=== PATIENT | male | born 1975 | race Caucasian/White ===

== ENCOUNTER 2020-02-29 21:36 | Emergency (ER) | payer SELFPAY ==
[2020-02-29] MEDS ORDERED: METHYLPREDNISOLONE 125 MG INJ ONE (21:55)
[2020-02-29] MEDS ORDERED: NA CHLORIDE 0.9% 1,000 ML ONE (21:55)
[2020-02-29] MEDS ORDERED: FAMOTIDINE 20 MG/2 ML VIAL IV ONE ×2 (21:55→22:00)
[2020-02-29] MEDS ORDERED: DIPHENHYDRAMINE 50 MG/ML VIAL ONE (21:55)
[2020-02-29] MEDS ORDERED: IPRATROPIUM BROM 0.5MG/2.5ML ONE (22:03)
[2020-02-29] MEDS ORDERED: ALBUTEROL 2.5 MG/3 ML NEB SOL ONE (22:03)
[2020-02-29] MEDS ORDERED: EPINEPHRINE/PF 1 MG/ML AMP ONE (22:11)
[2020-02-29 22:17] LABS: Absolute Lymphocytes (CBC) 3.3 K/uL (0.7-4.9); Basophils % 1.2 % (0-1.3); Lymphocytes % 28.3 % (15.3-44.8); MPV 9.5 fL (7.6-11.3); RBC Red Blood Cell Count 5.06 M/uL (4.33-5.43)
[2020-02-29] MEDS ORDERED: predniSONE 20 MG TAB ONE (22:34)
[2020-02-29 22:35] LABS: Albumin 3.3 g/dL (3.4-5.0); Bilirubin Total 0.2 mg/dL (0.2-1.0); Potassium 3.9 mmol/L (3.5-5.1); Protein, Total 7.3 g/dL (6.4-8.2)
--- NOTE | 2020-02-29 22:46 | ER ---
Nurse's Notes [facility] Name: Hero Burden Age: 44 yrs Sex: Male : 1975 Arrival Date: 02/29/2020 Time: 21:42 Bed 3 Private MD: Diagnosis: Food additives allergy status;Food allergy status Presentation: 02/28 21:48 Chief complaint: Patient states: Allergic to chicken and eggs. 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 Reports SOB and throat swelling. Coronavirus screen: Proceed with normal triage. Patient denies a cough. Patient reports shortness of breath or difficulty breathing. Patient denies measured and/or subjective temperature greater than 100.4F prior to today's visit. Patient denies travel on a cruise ship or to a country the [facility] currently lists as an affected area. Patient denies contact with known and/or suspected case of COVID-19. Ebola Screen: Patient negative for fever greater than or equal to 101.5 degrees Fahrenheit, and additional compatible Ebola Virus Disease symptoms Patient denies exposure to infectious person. Patient denies travel to an Ebola-affected area in the 21 days before illness onset. No symptoms or risks identified at this time. Initial Sepsis Screen: Does the patient meet any 2 criteria? No. Patient's initial sepsis screen is negative. Does the patient have a suspected source of infection? No. Patient's initial sepsis screen is negative. Risk Assessment: Do you want to hurt yourself or someone else? Patient reports no desire to harm self or others. Onset of symptoms was February 29, 2020. 21:48 Method Of Arrival: Ambulatory ca1 21:48 Acuity: MORAIMA 3 ca1 Triage Assessment: 22:02 General: Appears comfortable, Behavior is calm, cooperative. Respiratory: Reports rv shortness of breath at rest Onset: The symptoms/episode began/occurred 2029, the patient has mild shortness of breath. Historical: - Allergies: 21:52 No Known Allergies; ca1 - Home Meds: 21:52 None [Active]; ca1 - PMHx: 21:52 None; ca1 - PSHx: 21:52 Appendectomy; ca1 - Immunization history:: Adult Immunizations up to date. - Social history:: Smoking status: Patient denies any tobacco usage or history of. - Family history:: not pertinent. Screenin:02 Abuse screen: Denies threats or abuse. Denies injuries from another. Nutritional rv screening: No deficits noted. Tuberculosis screening: No symptoms or risk factors identified. Fall Risk None identified. Assessment: 22:01 General: Appears comfortable, Behavior is calm, cooperative. Pain: Denies pain. Neuro: rv Level of Consciousness is awake, alert, obeys commands, Oriented to person, place, time, situation. Cardiovascular: Patient's skin is warm and dry. Rhythm is regular. Respiratory: Airway is patent Respiratory effort is even, unlabored, Breath sounds are clear bilaterally. Derm: Skin is intact. 22:57 Reassessment: Patient appears in no apparent distress at this time. Patient is alert, rr5 oriented x 3, equal unlabored respirations, skin warm/dry/pink. for discharge after IV fluid bolus. 23:17 Reassessment: Patient appears in no apparent distress at this time. Patient is alert, rr5 oriented x 3, equal unlabored respirations, skin warm/dry/pink. discharge instruction given and explained without complaints made. Patient states feeling better. Patient states symptoms have improved. Vital Signs: 21:48 BP 120 / 79; Pulse 91; Resp 20 S; Temp 97.6(TE); Pulse Ox 96% on R/A; Weight 136.08 kg ca1 (R); Height 6 ft. 0 in. (182.88 cm) (R); Pain 0/10; 22:54 BP 115 / 86; Pulse 95; Resp 19; Pulse Ox 98% on R/A; rr5 23:16 BP 121 / 78; Pulse 90; Resp 17; Temp 97.5; Pulse Ox 100% on R/A; rr5 21:48 Body Mass Index 40.69 (136.08 kg, 182.88 cm) ca1 ED Course: 21:42 Patient arrived in ED. cf2 21:44 Edis Botello MD is Attending Physician. tess 21:48 Inserted saline lock: 20 gauge in right antecubital area, using aseptic technique. mt Blood collected. 21:51 Brad Guevara RN is Primary Nurse. rr5 21:51 Triage completed. ca1 21:52 Arm band placed on right wrist. ca1 22:02 Patient has correct armband on for positive identification. Bed in low position. Call rv light in reach. Side rails up X 1. monitoring engineer on. Pulse ox on. NIBP on. 22:21 Chest Single View XRAY In Process Unspecified. EDMS 23:17 No provider procedures requiring assistance completed. IV discontinued, intact, rr5 bleeding controlled, No redness/swelling at site. Pressure dressing applied. Administered Medications: 21:50 Drug: NS 0.9% 1000 ml Route: IV; Rate: 1 bolus; Site: right antecubital; lp1 23:15 Follow up: Response: No adverse reaction; IV Status: Completed infusion; IV Intake: rr5 1000ml 21:50 Drug: Benadryl 50 mg Route: IVP; Site: right antecubital; lp1 23:00 Follow up: Response: No adverse reaction; Marked relief of symptoms rr5 21:50 Drug: Pepcid 40 mg Route: IVP; Site: right antecubital; lp1 23:18 Follow up: Response: No adverse reaction rr5 21:50 Drug: SOLU-Medrol 125 mg Route: IVP; Site: right antecubital; lp1 23:18 Follow up: Response: No adverse reaction rr5 22:00 Drug: Albuterol - atroVENT (3:1) (2.5 mg - 0.5 mg) 3 ml Route: Nebulizer; rv 23:18 Follow up: Response: No adverse reaction; Marked relief of symptoms rr5 22:15 Drug: EPINEPHrine 1mg/mL 1:1,000 0.4 ml Route: Sub-Q; Site: right upper arm; rr5 23:18 Follow up: Response: No adverse reaction rr5 22:35 Drug: predniSONE 60 mg Route: PO; rr5 23:18 Follow up: Response: No adverse reaction rr5 Intake: 23:15 IV: 1000ml; Total: 1000ml. rr5 Outcome: 22:46 Discharge ordered by . tess 23:17 Discharged to home ambulatory. rr5 23:17 Condition: stable 23:17 Discharge instructions given to patient, Instructed on discharge instructions, follow up and referral plans. medication usage, Demonstrated understanding of instructions, follow-up care, medications, Prescriptions given X 4. 23:19 Patient left the ED. rr5 Signatures: Dispatcher [employer] EDMS Edis Botello MD MD cha Pena, Laura RN RN lp1 Mary Jane Rangel mt, Ronaldo, RN RN rv Brad Guevara, RN RN rr5 Sultana, Elaine, RN RN ca1 Todd, Reza cf2
--- NOTE | 2020-02-29 22:47 | EDPHYS ---
Physician Documentation [facility] Name: Hero Burden Age: 44 yrs Sex: Male : 1975 Arrival Date: 02/29/2020 Time: 21:42 Bed 3 Private MD: ED Physician Edis Botello HPI: 02/28 21:54 This 44 yrs old Male presents to ER via Ambulatory with complaints of tess Shortness Of Breath, Allergic Reaction. 21:54 The patient has shortness of breath at rest, with light activity. Onset: The tess symptoms/episode began/occurred 1.5 hour(s) ago. Duration: The symptoms are continuous, and are steadily getting worse. The patient's shortness of breath is aggravated by nothing, is alleviated by nothing. Associated signs and symptoms: Pertinent positives: non-productive cough, dizziness, nausea. Severity of symptoms: At their worst the symptoms were moderate in the emergency department the symptoms are worse mildly. The patient has not experienced similar symptoms in the past. Historical: - Allergies: 21:52 No Known Allergies; ca1 - Home Meds: 21:52 None [Active]; ca1 - PMHx: 21:52 None; ca1 - PSHx: 21:52 Appendectomy; ca1 - Immunization history:: Adult Immunizations up to date. - Social history:: Smoking status: Patient denies any tobacco usage or history of. - Family history:: not pertinent. ROS: 21:54 Constitutional: Negative for fever, chills, and weight loss, Eyes: Negative for injury, tess pain, redness, and discharge, Neck: Negative for injury, pain, and swelling, Cardiovascular: Negative for chest pain, palpitations, and edema, Abdomen/GI: Negative for abdominal pain, nausea, vomiting, diarrhea, and constipation, Back: Negative for injury and pain, : Negative for injury, bleeding, discharge, and swelling, MS/Extremity: Negative for injury and deformity, Skin: Negative for injury, rash, and discoloration, Neuro: Negative for headache, weakness, numbness, tingling, and seizure, Psych: Negative for depression, anxiety, suicide ideation, homicidal ideation, and hallucinations, Allergy/Immunology: Negative for hives, rash, and allergies, Endocrine: Negative for neck swelling, polydipsia, polyuria, polyphagia, and marked weight changes, Hematologic/Lymphatic: Negative for swollen nodes, abnormal bleeding, and unusual bruising. 21:54 ENT: Positive for difficulty swallowing, rhinorrhea, sinus congestion. 21:54 Respiratory: Positive for cough. 21:54 Skin: Negative for rash. Exam: 21:54 Constitutional: This is a well developed, well nourished patient who is awake, alert, tess and in no acute distress. Head/Face: Normocephalic, atraumatic. Eyes: Pupils equal round and reactive to light, extra-ocular motions intact. Lids and lashes normal. Conjunctiva and sclera are non-icteric and not injected. Cornea within normal limits. Periorbital areas with no swelling, redness, or edema. Neck: Trachea midline, no thyromegaly or masses palpated, and no cervical lymphadenopathy. Supple, full range of motion without nuchal rigidity, or vertebral point tenderness. No Meningismus. Chest/axilla: Normal chest wall appearance and motion. Nontender with no deformity. No lesions are appreciated. Cardiovascular: Regular rate and rhythm with a normal S1 and S2. No gallops, murmurs, or rubs. Normal PMI, no JVD. No pulse deficits. Respiratory: Lungs have equal breath sounds bilaterally, clear to auscultation and percussion. No rales, rhonchi or wheezes noted. No increased work of breathing, no retractions or nasal flaring. Abdomen/GI: Soft, non-tender, with normal bowel sounds. No distension or tympany. No guarding or rebound. No evidence of tenderness throughout. Back: No spinal tenderness. No costovertebral tenderness. Full range of motion. Male : Normal genitalia with no discharge or lesions. Skin: Warm, dry with normal turgor. Normal color with no rashes, no lesions, and no evidence of cellulitis. MS/ Extremity: Pulses equal, no cyanosis. Neurovascular intact. Full, normal range of motion. Neuro: Awake and alert, GCS 15, oriented to person, place, time, and situation. Cranial nerves II-XII grossly intact. Motor strength 5/5 in all extremities. Sensory grossly intact. Cerebellar exam normal. Normal gait. Psych: Awake, alert, with orientation to person, place and time. Behavior, mood, and affect are within normal limits. 21:54 ENT: Mouth: is normal, no acute changes, Posterior pharynx: Tonsils: with erythema, Uvula: edematous, erythema, swelling, that is mild, erythema, that is mild, exudate, is not appreciated, peritonsillar mass, is not appreciated, pooling of secretions, is not appreciated. 22:20 ECG was reviewed by the Attending Physician. [facility] Vital Signs: 21:48 BP 120 / 79; Pulse 91; Resp 20 S; Temp 97.6(TE); Pulse Ox 96% on R/A; Weight 136.08 kg ca1 (R); Height 6 ft. 0 in. (182.88 cm) (R); Pain 0/10; 22:54 BP 115 / 86; Pulse 95; Resp 19; Pulse Ox 98% on R/A; rr5 23:16 BP 121 / 78; Pulse 90; Resp 17; Temp 97.5; Pulse Ox 100% on R/A; rr5 21:48 Body Mass Index 40.69 (136.08 kg, 182.88 cm) ca1 MDM: 21:44 Patient medically screened. [facility] 21:56 Data reviewed: vital signs, nurses notes, lab test result(s), EKG, radiologic studies, [facility] plain films. 22:18 Differential diagnosis: Anxiety Reaction asthma, Bronchitis CHF exacerbation, pulmonary tess edema, Pulmonary Embolism reactive airway disease. The patient's [place] Deep Vein Thrombosis Score was calculated as follows: Total Score: 0-2 Pts- Low Risk. Immunization status:. Data interpreted: electronic device monitor: rate is 91 beats/min, rhythm is normal sinus rhythm, Pulse oximetry: on 2L(s) per nasal canula, is 96 %. Test interpretation: by ED physician or midlevel provider: ECG, plain radiologic studies. Counseling: I had a detailed discussion with the patient and/or guardian regarding: the historical points, exam findings, and any diagnostic results supporting the discharge/admit diagnosis, lab results, radiology results, the need for outpatient follow up, for definitive care, an allergy/agriculture extension specialist, a family practitioner. 22:46 ED course: improved, airway stable,no difficulty swallowing. [facility] 02/28 21:53 Order name: CBC with Diff; Complete Time: 22:[address] [facility] 02/28 21:53 Order name: Comprehensive Metabolic Panel; Complete Time: 22:[address] [facility] 02/28 21:57 Order name: Chest Single View XRAY [facility] 05/22 21:57 Order name: EKG; Complete Time: 21:[address] [facility] 02/28 21:57 Order name: EKG - Nurse/Tech; Complete Time: 22:[address] [facility] EC:20 Rate is 79 beats/min. Rhythm is regular. QRS [place] is Normal. DC interval is normal. QRS tess interval is normal. QT interval is normal. No Q waves. T waves are Normal. No ST changes noted. Clinical impression: Normal ECG and No evidence of ischemia. Interpreted by me. Reviewed by me. Administered Medications: 21:50 Drug: NS 0.9% 1000 ml Route: IV; Rate: 1 bolus; Site: right antecubital; lp1 23:15 Follow up: Response: No adverse reaction; IV Status: Completed infusion; IV Intake: rr5 1000ml 21:50 Drug: Benadryl 50 mg Route: IVP; Site: right antecubital; lp1 23:00 Follow up: Response: No adverse reaction; Marked relief of symptoms rr5 21:50 Drug: Pepcid 40 mg Route: IVP; Site: right antecubital; lp1 23:18 Follow up: Response: No adverse reaction rr5 21:50 Drug: SOLU-Medrol 125 mg Route: IVP; Site: right antecubital; lp1 23:18 Follow up: Response: No adverse reaction rr5 22:00 Drug: Albuterol - atroVENT (3:1) (2.5 mg - 0.5 mg) 3 ml Route: Nebulizer; rv 23:18 Follow up: Response: No adverse reaction; Marked relief of symptoms rr5 22:15 Drug: EPINEPHrine 1mg/mL 1:1,000 0.4 ml Route: Sub-Q; Site: right upper arm; rr5 23:18 Follow up: Response: No adverse reaction rr5 22:35 Drug: predniSONE 60 mg Route: PO; rr5 23:18 Follow up: Response: No adverse reaction rr5 Disposition: 02/29/20 22:46 Discharged to Home. Impression: Food additives allergy status, Food allergy status. - Condition is Stable. - Discharge Instructions: Allergies, Adult, Epinephrine Injection, Food Allergy, Food Allergy, [id number], Substitutions for Common Food Allergies. - Prescriptions for Benadryl 25 mg Oral Capsule - take 2 capsule by ORAL route every 6 hours As needed; 30 tablet. Pepcid 20 mg Oral Tablet - take 1 tablet by ORAL route every 12 hours for 10 days; 20 tablet. Prednisone 20 mg Oral Tablet - take 3 tablet by ORAL route once daily for 5 days; 15 tablet. EpiPen 0.3 mg Injection auto- injector - inject 1 pen by INTRAMUSCULAR route one time Inject into the outer portion of the thigh, through clothing if necessary. Indicated in the emergency treatment of allergic reactions; 1 Cartridge. - Medication Reconciliation Form, Thank You Letter, Antibiotic Education, Prescription Opioid Use form. - Follow up: Private Physician; When: 2 - 3 days; Reason: Recheck today's complaints, Continuance of care, Re-evaluation by your physician. - Problem is new. - Symptoms have improved. Signatures: Dispatcher [employer] EDMS Edis Botello MD MD cha Pena, Laura RN RN lp1 Gary Naqvi RN RN rv Brad Guevara RN RN rr5 Elaine Weinberg RN RN ca1 Corrections: (The following items were deleted from the chart) 23:19 22:46 02/29/2020 22:46 Discharged to Home. Impression: Food additives allergy status; rr5 Food allergy status. Condition is Stable. Discharge Instructions: Allergies, Adult, Epinephrine Injection, Food Allergy, Food Allergy, [id number], Substitutions for Common Food Allergies. Prescriptions for Benadryl 25 mg Oral Capsule - take 2 capsule by ORAL route every 6 hours As needed; 30 tablet, Pepcid 20 mg Oral Tablet - take 1 tablet by ORAL route every 12 hours for 10 days; 20 tablet, Prednisone 20 mg Oral Tablet - take 3 tablet by ORAL route once daily for 5 days; 15 tablet, EpiPen 0.3 mg Injection auto-injector - inject 1 pen by INTRAMUSCULAR route one time Inject into the outer portion of the thigh, through clothing if necessary. Indicated in the emergency treatment of allergic reactions; 1 Cartridge. and Forms are Medication Reconciliation Form, Thank You Letter, Antibiotic Education, Prescription Opioid Use. Follow up: Private Physician; When: 2 - 3 days; Reason: Recheck today's complaints, Continuance of care, Re-evaluation by your physician. Problem is new. Symptoms have improved. tess
[2020-02-29 23:40] VITALS: BP 121/78; TEMP 97.5; O2SAT 100
--- NOTE | 2020-03-01 12:43 | RAD REPORT ---
EXAM DESCRIPTION: RAD - Chest Single View - 02/29/2020 10:21 pm CLINICAL HISTORY: COUGH Chest pain. COMPARISON: No comparisons FINDINGS: Portable technique limits examination quality. The lungs are grossly clear. The heart is normal in size. No displaced fractures. IMPRESSION: No acute intrathoracic process suspected.
--- NOTE | 2020-03-03 08:57 | EKG ---
Test Date: 2020-02-29 Test Time: 22:13:14 Film Library Clerk: RR MEASUREMENT RESULTS: Intervals: Rate: 79 RI: 128 QRSD: 100 QT: 374 QTc: 428 [place]: P: 34 RI: 128 QRS: -8 T: 26 INTERPRETIVE STATEMENTS: Normal sinus rhythm Normal ECG Compared to ECG 03/22/2011 03:20:56 No significant changes Electronically Signed On 03-03-20 08:54:30 CDT by Connor Montez
== END 2020-02-29 23:19 ==
LOC: ER 21:36
DX: R05 Cough (principal); R11.0 Nausea; R42 Dizziness and giddiness; Z91.02 Food additives allergy status; Z91.018 Allergy to other foods
CPT/HCPCS: 36415; 71045; 80053; 85025; 93005; 94640; 96361; 96372; 96374; 96375; 99285; J0171; J1200; J2930; J7030; J7512